=== PATIENT | male | born 1950 | race Caucasian/White ===

== ENCOUNTER → 2017-02-16 | Outpatient (CLI) | payer MEDICARE ==
[2017-02-16 10:47] LABS: ALT 53 U/L (21-72); AST 26 U/L (17-59); Alkaline Phosphatase 54 U/L (38-126); Anion Gap 9 mmol/L; Blood Urea Nitrogen 14 mg/dL (9-20); Calcium 9.5 mg/dL (8.4-10.2); Carbon Dioxide 29 mmol/L (22-30); Chloride 100 mmol/L (98-107); Cholesterol 215 mg/dL (<200); Glucose 217 mg/dL (74-99); HDL Cholesterol 41 mg/dL (40-60); Non-African American GFR(MDRD) >60 (>60 ml/min/1.73 sqM); Potassium 5.1 mmol/L (3.5-5.1); Sodium 138 mmol/L (137-145); Total Bilirubin 0.5 mg/dL (0.2-1.3); Total Protein 7.5 g/dL (6.3-8.2)
== END | disposition home or self-care (01) ==
LOC: LABWHC1 09:44
PROVIDERS: ATTEND Internal Medicine Clinical Cardiac Electrophysiology
DX: I25.10 Atherosclerotic heart disease of native coronary artery without angina pectoris (principal); I47.2 Ventricular tachycardia
CPT/HCPCS: 36415; 80053; 80061; 84443

== ENCOUNTER → 2017-03-24 | Outpatient (CLI) | payer MEDICARE ==
[2017-03-24 09:01] LABS: Blood Urea Nitrogen 17 mg/dL (9-20); Non-African American GFR(MDRD) >60 (>60 ml/min/1.73 sqM)
--- NOTE | 2017-03-24 12:06 | CT ---
EXAMINATION TYPE: CT angio neck DATE OF EXAM: 03/24/2017 COMPARISON: NONE HISTORY: 66-year-old male Carotid stenosis TECHNIQUE: Contiguous axial scanning of the neck performed with IV Contrast, patient injected with 65 mL of Omnipaque 350. Coronal/sagittal MIP reconstructions performed. 3-D reconstructions generated o n a dedicated independent workstation. CT DLP: 426 mGycm Automated exposure control for dose reduction was used. FINDINGS: Left anterior chest wall pacemaker generator. Emphysema in the visualized upper lungs. Mild atherosclerotic calcifications within the aortic arch with patent great vessel origins. The vertebral arteries are codominant and patent at their origin and throughout their course. There i s mild atherosclerotic calcification at the origin of the right vertebral artery and within the intra cranial V4 segments on both sides. On the right, the common carotid artery is patent. There is moderate plaque and calcification within the carotid bulb. At the proximal bulb, focal calcifications cause mild, 30% stenosis. There is sugge stion of some focal plaque ulceration in the upper carotid bulb which gives the appearance of 2 lumen s on some of the cross-sectional images. At this level the vessels narrowed to 1.9 mm which qualifies as a moderate, 60% stenosis. The proximal right ICA takes a hairpin turn directed right laterally. T he bifurcation is located approximately 1.6 cm below the angle of the mandible. On the left, there is mild atherosclerotic narrowing of the upper common carotid artery secondary to mural-based plaque. The mid left ICA is tortuous and there is moderate atelectatic calcification in the carotid bulb area with mild, less than 50% luminal narrowing. IMPRESSION: 1. FOCAL PLAQUE ULCERATION IN THE UPPER RIGHT CAROTID BULB CAUSING MODERATE, 60% PROXIMAL ICA STENOSI S. 2. MILD, LESS THAN 50% ATHEROSCLEROTIC NARROWING WITHIN THE LEFT CAROTID BULB.
== END | disposition home or self-care (01) ==
LOC: RADCTMAIN 08:27
PROVIDERS: ATTEND Internal Medicine Interventional Cardiology
DX: I65.23 Occlusion and stenosis of bilateral carotid arteries (principal)
CPT/HCPCS: 82565; 84520; 70498; 36415; Q9967

== ENCOUNTER → 2017-11-03 | Outpatient (CLI) | payer MEDICARE ==
[2017-11-03 11:31] LABS: ALT 53 U/L (21-72); AST 26 U/L (17-59); Albumin 4.5 g/dL (3.5-5.0); Alkaline Phosphatase 58 U/L (38-126); Anion Gap 13 mmol/L; Blood Urea Nitrogen 14 mg/dL (9-20); Calcium 9.7 mg/dL (8.4-10.2); Carbon Dioxide 27 mmol/L (22-30); Chloride 101 mmol/L (98-107); Cholesterol 202 mg/dL (<200); Glucose 231 mg/dL (74-99); HDL Cholesterol 40 mg/dL (40-60); LDL Cholesterol,Calculated 124 mg/dL (0-99); Potassium 5.7 mmol/L (3.5-5.1); Sodium 141 mmol/L (137-145); Total Bilirubin 0.3 mg/dL (0.2-1.3); Total Protein 7.6 g/dL (6.3-8.2); Triglycerides 190 mg/dL (<150)
== END | disposition home or self-care (01) ==
LOC: LABWHC1 10:22
PROVIDERS: ATTEND Internal Medicine Clinical Cardiac Electrophysiology
DX: I47.2 Ventricular tachycardia (principal); I50.9 Heart failure, unspecified; I25.10 Atherosclerotic heart disease of native coronary artery without angina pectoris; E78.5 Hyperlipidemia, unspecified
CPT/HCPCS: 36415; 80053; 80061; 84443

== ENCOUNTER 2017-11-30 10:21 | Day surgery (SDC) | payer MEDICARE ==
[~2017-11-30 10:21] MED LIST: ALPRAZolam 0.25 MG TAB PO PRN; SODIUM CHLORIDE 0.9% 1,000 ML in EMPTY BAG 1 BAG IV ONE
[2017-11-30 10:57] LABS: Basophils # (A) 0.1 k/uL (0-0.2); Basophils % (A) 1 %; Eosinophils # (A) 0.3 k/uL (0-0.7); Eosinophils % (A) 3 %; HCT 47.7 % (39.0-53.0); HGB 15.8 gm/dL (13.0-17.5); Lymphocytes # (A) 1.2 k/uL (1.0-4.8); Lymphocytes % (A) 11 %; MCH 29.4 pg (25.0-35.0); MCHC 33.1 g/dL (31.0-37.0); MCV 88.9 fL (80.0-100.0); Mean Platelet Volume 7.6; Monocytes # (A) 0.8 k/uL (0-1.0); Monocytes % (A) 7 %; Neutrophils # (A) 8.6 k/uL (1.3-7.7); Neutrophils % (A) 77 %; Platelet Count 292 k/uL (150-450); RBC 5.36 m/uL (4.30-5.90); WBC 11.2 k/uL (3.8-10.6)
[2017-11-30 11:14] LABS: Anion Gap 12 mmol/L; Blood Urea Nitrogen 14 mg/dL (9-20); Calcium 9.5 mg/dL (8.4-10.2); Carbon Dioxide 27 mmol/L (22-30); Chloride 101 mmol/L (98-107); Glucose 199 mg/dL (74-99); Potassium 4.9 mmol/L (3.5-5.1); Sodium 140 mmol/L (137-145)
[2017-11-30] MEDS ORDERED: MIDAZOLAM 2 MG/2 ML VIAL IV ONE (11:26)
[2017-11-30] MEDS ORDERED: LIDOCAINE 1% INJ 10MG/ML (20 ML MDV) SQ ONE (11:26)
[2017-11-30] MEDS: MIDAZOLAM 2 MG/2 ML VIAL IVP ONE ×2 (11:39→12:11)
[2017-11-30] MEDS: fentaNYL (PF) 50 MCG/ML 2 ML AMP IVP ONE ×3 (11:40→12:52)
[2017-11-30] MEDS ORDERED: IOPAMIDOL-370 100ML BTL INJ ONE ×3 (11:46→12:55)
[2017-11-30] MEDS ORDERED: SODIUM CHLORIDE 0.9% 1,000 ML IV ONE (12:52)
[2017-11-30] MEDS ORDERED: SODIUM CHLORIDE 0.9% 1,000 ML IV SCH (13:30)
[2017-11-30] MEDS ORDERED: ENALAPRILAT 1.25 MG/ML 1 ML VIAL IVP ONE (14:15)
--- NOTE | 2017-11-30 14:48 | AN ---
ANGIOGRAPHY REPORT DATE OF SERVICE: November 30, 2017 PERFORMING PHYSICIAN: Chente Bonilla MD. PROCEDURE PERFORMED: 1. Selective right common iliac artery angiogram. 2. Successful stenting of the right common iliac artery using 7.0 x 22 mm iCAST stent with good angiographic results. INDICATION: This is a pleasant 67-year-old gentleman who sees Dr. Diaz in the office as an outpatient who was experiencing right leg intermittent claudication who underwent a peripheral angiogram earlier and that revealed severe disease involving the right common iliac artery. The decision was made towards percutaneous peripheral intervention. APPROACH: Left common femoral artery. COMPLICATION: None. LEVEL OF SEDATION: Moderate with sedation length of 70 minutes. PROCEDURE DESCRIPTION: After peripheral angiogram was performed from the left groin using 5-[place] Citizen sheath, I did exchange my 11 cm 5-[place] Citizen sheath into 23 cm Brite tip 7-[place] Citizen sheath. Subsequently I did select the right SFA using a 5-[place] Citizen rim catheter with 035 glide advantage wire. After that, I did advance the 23 cm Brite Tip sheath all the way to the distal aortic bifurcation. I did after that balloon angioplasty of the of the right common iliac artery using 6 mm x 20 mm balloon before I deployed 7 x 22 mm iCAST stent where the stent was positioned under fluoroscopy guidance and deployed under 14 atmospheres for 20 seconds with the following angiogram showing good angiographic results with reduction of stenosis from 80% to 0%. Of course before I started the procedure, anticoagulation was initiated using heparin and the patient was given a total of 8000 units of heparin IV with ACT monitoring throughout the procedure. Before I did the iliac stenting, I did also gradient measurement across the right common iliac artery using a 5-[place] straight catheter which was advanced over a 035 glide advantage wire and that was positioned distal to the lesion and proximal to the lesion in the right common iliac artery. The gradient measurement came in to be 30 mmHg indicating severe stenosis. POSTPROCEDURE MANAGEMENT: 1. Dual anti-platelet therapy. 2. Risk factor modifications. 3. Follow up with the patient. MMODL / IJN: [id number] /
--- NOTE | 2017-11-30 14:48 | AN ---
ANGIOGRAPHY REPORT DATE OF SERVICE: November 30, 2017 PERFORMING PHYSICIAN: Chente Bonilla MD, grinder set up operator. PROCEDURE PERFORMED: 1. An abdominal aortogram and bilateral lower extremities runoff. 2. Gradient measurement across the left common iliac artery. INDICATION: This is a pleasant 67-year-old gentleman who sees Dr. Diaz in the office as an outpatient as well as sees a primary care physician at the [facility] in [place] was experiencing right leg intermittent claudication. He underwent a right carotid stenting a few months ago and accessing through the right groin. I did selective right common femoral artery at that point, and that showed critical disease involving the ostial of the right SFA. He was brought today to undergo an abdominal aortogram and bilateral lower extremities runoff. COMPLICATION: None. LEVEL OF SEDATION: Moderate with sedation length of 20 minutes. PROCEDURE DESCRIPTION: After obtaining an informed consent, the patient was brought to cardiac cath lab tech. The left common femoral artery was cannulated using micropuncture technique and a micropuncture wire passed easily then I placed a 5-[place] sheath in the left common femoral artery. I did after that an abdominal aortogram and bilateral lower extremities runoff using 5-[place] pigtail catheter which was initially placed at the level of the renal arteries then it was pulled into above the bifurcation of the aorta to right and left common iliac arteries. I did after that gradient measurement across the left common iliac artery. Please see a separate paragraph for that. SELECTIVE PERIPHERAL ANGIOGRAM: 1. The aorta appeared to be mildly aneurysmal. It is calcified as well. It bifurcates into right and left common iliac arteries. 2. Common Iliac Arteries: The right common iliac artery has mild disease only and the ostial of left common iliac artery appeared to have a lesion in the range of 70% to 80%. 3. Internal Iliac Arteries: The right and left internal iliac arteries are angiographically normal. 4. External Iliac Arteries: The right and left external iliac arteries are angiographically normal. 5. Common Femoral Arteries: The right and left common femoral arteries are angiographically normal. 6. Profunda: The right profunda has a tight lesion in the proximal portion, appeared to be in the range of 70% to 80%. The left profunda appeared to be angiographically normal. 7. The SFA: The right SFA by the ostium has a disease in the range of 60-70% and the left SFA appeared to be angiographically normal. 8. The popliteal: The right and left popliteal are angiographically normal. 9. Below the knee: The vessels below the knee were poorly visualized, but it seems to be that there are 3 vessel runoff below the knee bilaterally. CONCLUSION: 1. Severe disease involving the ostial of right common iliac artery. 2. Severe disease involving the right profunda. 3. Intermediate to severe disease involving the right SFA. POSTPROCEDURE MANAGEMENT: 1. NOTCH MACHINE OPERATOR of the right common iliac artery. 2. If the patient continues to be symptomatic in spite of that, I do feel that the patient will benefit from endarterectomy of the profunda as well as right SFA since the disease involving the proximal portion of both of them right from the bifurcation from the right common femoral artery. MMODL / IJN: [id number] /
--- NOTE | 2017-11-30 14:50 | IR ---
Fluoroscopy HISTORY: Pain in leg 16 minutes fluoroscopy time supplied to the referring clinician. 339 intraoperative C-arm images doc ument the procedure. See dictated report from cardiology.
[2017-11-30] MEDS ORDERED: fentaNYL (PF) 50 MCG/ML 2 ML AMP IVP SCH (15:40)
[2017-11-30] MEDS ORDERED: fentaNYL (PF) 50 MCG/ML 5 ML AMP IVP ONE (17:32)
[2017-11-30 19:00] VITALS: BMI 37.3
[2017-11-30] MEDS: MEXILETINE 150 MG CAP PO SCH ×2 (19:01→21:08)
[2017-11-30] MEDS: FERROUS SULFATE 325 MG TAB PO SCH ×2 (19:01→21:11)
[2017-11-30] MEDS: CARVEDILOL 12.5 MG TAB PO SCH (19:02)
[2017-11-30] MEDS ORDERED: ATORVASTATIN 40 MG TAB PO SCH (21:00)
[2017-11-30] MEDS ORDERED: INSULIN DETEMIR 100 UNIT/ML 10 ML VIAL SQ SCH (21:00)
[2017-11-30 21:20] LABS: Glucose,Whole Blood 216 mg/dL (75-99)
[2017-12-01 03:32] LABS: Glucose,Whole Blood 180 mg/dL (75-99)
[2017-12-01 05:39] LABS: Glucose,Whole Blood 142 mg/dL (75-99)
[2017-12-01] MEDS: CARVEDILOL 12.5 MG TAB PO SCH (06:18)
[2017-12-01 06:34] LABS: Basophils # (A) 0.1 k/uL (0-0.2); Basophils % (A) 1 %; Eosinophils # (A) 0.3 k/uL (0-0.7); Eosinophils % (A) 2 %; HCT 42.2 % (39.0-53.0); HGB 13.8 gm/dL (13.0-17.5); Lymphocytes # (A) 1.9 k/uL (1.0-4.8); Lymphocytes % (A) 18 %; MCH 29.1 pg (25.0-35.0); MCHC 32.6 g/dL (31.0-37.0); MCV 89.2 fL (80.0-100.0); Mean Platelet Volume 7.8; Monocytes % (A) 9 %; Neutrophils # (A) 7.3 k/uL (1.3-7.7); Neutrophils % (A) 69 %; Platelet Count 266 k/uL (150-450); RBC 4.73 m/uL (4.30-5.90); RDW 14.9 % (11.5-15.5); WBC 10.6 k/uL (3.8-10.6)
[2017-12-01 06:47] LABS: Anion Gap 9 mmol/L; Blood Urea Nitrogen 14 mg/dL (9-20); Calcium 8.5 mg/dL (8.4-10.2); Carbon Dioxide 27 mmol/L (22-30); Chloride 104 mmol/L (98-107); Glucose 134 mg/dL (74-99); Potassium 4.5 mmol/L (3.5-5.1); Sodium 140 mmol/L (137-145)
[2017-12-01] MEDS ORDERED: INSULIN ASPART 100 UNIT/ML 1 ML 10 ML VIAL SQ SCH (07:30)
[2017-12-01] MEDS: FERROUS SULFATE 325 MG TAB PO SCH (08:32)
[2017-12-01] MEDS: MEXILETINE 150 MG CAP PO SCH (08:32)
[2017-12-01] MEDS ORDERED: ASPIRIN 81 MG PO SCH (09:00)
[2017-12-01] MEDS ORDERED: CLOPIDOGREL 75 MG TAB PO SCH ×2 (09:00)
[2017-12-01] MEDS ORDERED: AMIODARONE 100 MG TAB PO SCH (09:00)
[2017-12-01] MEDS ORDERED: VELTASSA 8.4 GM PO SCH (09:00)
[2017-12-01] MEDS ORDERED: LISINOPRIL 20 MG TAB PO SCH (09:00)
[2017-12-01] MEDS ORDERED: LOSARTAN 50 MG TAB PO SCH (09:00)
[2017-12-01 09:19] VITALS: BP 103/50; PULSE 66; RESP 18; TEMP 97.6
--- NOTE | 2017-12-01 12:07 | DS ---
DISCHARGE SUMMARY ADMISSION DATE: 11/30/2017 DISCHARGE DATE: 12/01/2017 BRIEF HISTORY: This is a pleasant 67-year-old gentleman who sees Dr. Diaz in the office as an outpatient who was experiencing right lower extremities intermittent claudication and underwent a peripheral angiogram yesterday and that revealed critical disease involving the right iliac artery where he underwent stenting of the right iliac artery. The procedure was performed from the left groin which is soft and nontender and without any bruises. The patient is going to be discharged home on dual anti-platelet therapy and I will follow up with the patient in the office as an outpatient. MMODL / IJN: [id number] /
== END 2017-12-01 11:20 | disposition home or self-care (01) ==
LOC: CATHCVL 10:21 → 6SEL 12:55 → CATHCVL 12-01 11:20
PROVIDERS: ATTEND Internal Medicine Interventional Cardiology
DX: I70.211 Atherosclerosis of native arteries of extremities with intermittent claudication, right leg (principal); I70.0 Atherosclerosis of aorta; E13.51 Other specified diabetes mellitus with diabetic peripheral angiopathy without gangrene; Z79.4 Long term (current) use of insulin; E78.5 Hyperlipidemia, unspecified; I25.5 Ischemic cardiomyopathy; I25.10 Atherosclerotic heart disease of native coronary artery without angina pectoris; Z95.820 Peripheral vascular angioplasty status with implants and grafts; I47.2 Ventricular tachycardia; Z95.810 Presence of automatic (implantable) cardiac defibrillator; J42 Unspecified chronic bronchitis; J43.8 Other emphysema; Z86.79 Personal history of other diseases of the circulatory system; I11.0 Hypertensive heart disease with heart failure; I50.22 Chronic systolic (congestive) heart failure; Z87.891 Personal history of nicotine dependence; Z82.49 Family history of ischemic heart disease and other diseases of the circulatory system; Z79.02 Long term (current) use of antithrombotics/antiplatelets; Z79.82 Long term (current) use of aspirin; Z79.899 Other long term (current) drug therapy
CPT/HCPCS: 37221; 75625; 75716; 80048 ×2; 85025 ×2; C1894 ×3; C1874; C1769 ×4; C1725; J2250; J2001; J3010 ×2; J1644; Q9967

== ENCOUNTER 2019-01-29 06:04 | Day surgery (SDC) | payer MEDICARE ==
[~2019-01-29 06:04] MED LIST changes: -ALPRAZolam 0.25 MG TAB PO PRN; +DEXAMETHASONE SOD PHOSPHATE 10 MG/ML 1 ML VIAL IV ONE; +LIDOCAINE 1% 20 ML VIAL (10MG/ML) FOR IV START INTRADERMA PRN; +MIDAZOLAM 2 MG/2 ML VIAL IV PRN; +SODIUM CHLORIDE 0.9% 1,000 ML IV SCH; -SODIUM CHLORIDE 0.9% 1,000 ML in EMPTY BAG 1 BAG IV ONE; +fentaNYL (PF) 50 MCG/ML 2 ML AMP IV PRN
[2019-01-29] MEDS ORDERED: ceFAZolin 1,000 MG in SODIUM CHLORIDE 0.9% IRRIGATIO 250 ML IRRIGATION ONE (07:00)
[2019-01-29] MEDS ORDERED: INSULIN ASPART (NovoLOG) 100 UNIT/ML VIAL SQ ONE (07:03)
[2019-01-29] MEDS ORDERED: PROPOFOL 10 MG/ML 20 ML VIAL IV ONE (07:07)
[2019-01-29] MEDS ORDERED: LIDOCAINE 1% INJ 10MG/ML (20 ML MDV) ONE ×3 (07:07→07:17)
[2019-01-29] MEDS ORDERED: MIDAZOLAM 2 MG/2 ML VIAL ONE (07:07)
[2019-01-29] MEDS ORDERED: fentaNYL (PF) 50 MCG/ML 2 ML AMP ONE (07:07)
[2019-01-29] MEDS ORDERED: amLODIPine 5 MG TAB ONE (07:17)
[2019-01-29] MEDS ORDERED: SODIUM CHLORIDE 0.9% 1,000 ML IV ONE (07:21)
[2019-01-29 07:27] LABS: Glucose,Whole Blood 238 mg/dL (75-99)
[2019-01-29] MEDS ORDERED: ACETAMINOPHEN TAB 325 MG TAB PO PRN (07:32)
[2019-01-29] MEDS ORDERED: HYDROcodone/APAP 5-325MG 1 EACH TAB PO PRN (07:32)
[2019-01-29] MEDS ORDERED: LIDOCAINE 1% INJ 10MG/ML (20 ML MDV) SQ ONE (07:55)
[2019-01-29] MEDS: LACTATED RINGERS 1,000 ML IV SCH (09:31)
[2019-01-29] MEDS: SODIUM CHLORIDE 0.9% 1,000 ML IV SCH (09:31)
[2019-01-29] MEDS: MEXILETINE 150 MG CAP PO SCH ×3 (09:31→22:46)
[2019-01-29] MEDS: CLOPIDOGREL 75 MG TAB PO SCH (09:31)
[2019-01-29] MEDS: LOSARTAN 50 MG TAB PO SCH (09:31)
[2019-01-29] MEDS: AMIODARONE 100 MG TAB PO SCH (09:32)
[2019-01-29] MEDS ORDERED: ACETAMINOPHEN IV (For NPO) 1,000 MG in EMPTY BAG 1 BAG IVPB ONE (10:00)
[2019-01-29 11:37] LABS: Glucose,Whole Blood 203 mg/dL (75-99)
[2019-01-29] MEDS: INSULIN ASPART (NovoLOG) 100 UNIT/ML VIAL SQ SCH ×3 (13:17→21:13)
[2019-01-29 13:55] VITALS: BMI 39.1
[2019-01-29 16:47] LABS: Glucose,Whole Blood 189 mg/dL (75-99)
[2019-01-29] MEDS: CARVEDILOL 12.5 MG TAB PO SCH (17:08)
[2019-01-29 20:36] LABS: Glucose,Whole Blood 194 mg/dL (75-99)
[2019-01-29] MEDS ORDERED: INSULIN DETEMIR (LEVEMIR) 100 UNIT/ML SYR SQ SCH (21:00)
[2019-01-29] MEDS ORDERED: ATORVASTATIN 80 MG TAB PO SCH (21:00)
--- NOTE | 2019-01-29 21:43 | PCN ---
PROCEDURE NOTE Pro Cason is a 68-year-old male patient with a dual-chamber ICD for management of an ischemic cardiomyopathy with ventricular tachycardia and ventricular fibrillation in the past with spontaneous sustained VT and bradycardia. His device is at [facility] and he was brought in for an ICD generator change and testing. He is on amiodarone and mexiletine. DESCRIPTION OF PROCEDURE: Patient was brought to the EP lab in a fasting state. Written informed consent was obtained prior to the procedure. The left shoulder area was prepped and draped as per protocol. 1% lidocaine was used for local anesthesia. A 4 cm incision made over the previous surgical site and carried down to the level of the generator. A partial capsulectomy was performed. The leads were freed from the surrounding capsule and the pocket was irrigated. The old generator was removed. The new generator was implanted. The leads were tested. Following that, defibrillation level testing was performed. The right atrial lead was Medtronic model #5076 52 cm in length and serial number [id number]. P waves 1.5 mV. Pacing impedance 578 ohms, pacing threshold 0.6 V at 0.5 milliseconds. The RV ICD lead was a single coil lead 65 cm in length, Medtronic model #6935 and serial number [id number]. R-waves 10.4 mV. Pacing impedance 543 ohms, pacing threshold 0.6 V at 0.5 milliseconds. The old generator explanted was Medtronic model number [id number], product name Virtuoso 2DR serial number [id number]. The new generator was a dual-chamber generator was a Medtronic model number [id number], serial number [id number]. The leads and generator were then placed in subfascial pocket. The wound was closed in 3 layers and dressed per protocol. Defibrillation level testing was then performed. Shock and T-wave protocol was used to induce ventricular fibrillation. This was adequately and appropriately detected at least sensitivity with 3 drop outs and successfully internally defibrillated with a 20 joule shock. Charge time 4.2 seconds. Shocking impedance of 78 ohms. No post shock noise. The device was then programmed to 3 zones of therapy. VF zone at 214 beats per minute. Fast VT zone of 171 beats per minute and slow VT zone of 143 beats per minute and a monitor zone of 133 beats per minute. Appropriate antitachycardia pacing cardioversion and defibrillation were programmed. Dual-chamber pacing AAIR to DDDR 50- 120 ppm. Patient tolerated the procedure well without any acute complications. RESULTS: 1. Successful dual-chamber ICD generator change for device at [facility] for secondary prevention of sudden cardiac in this gentleman with ischemic cardiomyopathy, class 2 CHF, chronic LV systolic dysfunction with severe LV dysfunction spontaneous sustained VT. 2. DFT at or below 20 joules. MMODL / IJN: [id number] /
[2019-01-29 23:13] VITALS: PULSE 68
[2019-01-30] MEDS: SODIUM CHLORIDE 0.9% 1,000 ML IV SCH (01:47)
[2019-01-30] MEDS ORDERED: INSULIN DETEMIR (LEVEMIR) 100 UNIT/ML SYR SQ SCH (04:32)
[2019-01-30 06:49] LABS: Glucose,Whole Blood 136 mg/dL (75-99)
[2019-01-30 07:30] VITALS: BP 123/83; RESP 17; TEMP 97.8
[2019-01-30] MEDS: LOSARTAN 50 MG TAB PO SCH (08:12)
[2019-01-30] MEDS: CARVEDILOL 12.5 MG TAB PO SCH (08:12)
[2019-01-30] MEDS: CLOPIDOGREL 75 MG TAB PO SCH (08:12)
[2019-01-30] MEDS: MEXILETINE 150 MG CAP PO SCH (08:13)
[2019-01-30] MEDS: AMIODARONE 100 MG TAB PO SCH (08:13)
[2019-01-30] MEDS: INSULIN ASPART (NovoLOG) 100 UNIT/ML VIAL SQ SCH (08:15)
[2019-01-30] MEDS: LACTATED RINGERS 1,000 ML IV SCH (08:15)
[2019-01-30] MEDS ORDERED: amLODIPine 2.5 MG TAB PO SCH (09:00)
[2019-01-30] MEDS ORDERED: ASPIRIN 81 MG PO SCH (09:00)
--- NOTE | 2019-01-30 14:30 | P.DS ---
Providers Attending physician: Zach Diaz [facility]: Patient is a 68-year-old male with past medical history of ischemic cardiomyopathy and spontaneous sustained VT status post dual-chamber ICD who presented for ICD generator change because his device was at [facility]. Yesterday he underwent successful ICD generator change and subsequent defibrillator level testing. DFT was found to be at or below 20 J. Device was reprogramed to AAIR- DDDR. Patient has done well postprocedure, no acute events overnight. Patient seen and examined sitting up at the side of his bed. Complains of mild pain at the incision site. Denies fevers, chills, cough, chest pain, shortness of breath, orthopnea, PND. He has been able to get up and walk around without any dizziness or lightheadedness. Temperature 97.8F, pulse 68, respirations 17, blood pressure 123/83, oxygen saturation 93% on room air Telemetry showed atrial pacing, no arrhythmias Patient seen and examined sitting up at the side bed, no acute distress Lungs clear to auscultation bilaterally, no wheezing rhonchi or crackles Heart is regular, normal S1-S2, no murmurs appreciated No elevated JVD No lower extremity edema Abdomen soft Generator dressing clean dry and intact Impression History of spontaneous sustained VT status post dual-chamber ICD status post generator change Ischemic cardiomyopathy Class II CHF Hypertension, blood pressure was initially elevated but has improved, in the 120s systolic this morning Plan He may be discharged after his antibiotics are completed Continue current cardiac medication regimen Educated patient low-sodium diet and home blood pressure monitoring Follow-up in the device clinic in 5 days follow up with Dr. Diaz/[place] Lentz/Susu Carlson in 3-4 months Plan - Discharge Summary Discharge Rx Participant: No New Discharge Prescriptions: Continue Ferrous Sulfate [Iron] 325 mg PO WEEKLY Aspirin [Adult Low Dose Aspirin EC] 81 mg PO DAILY Mexiletine HCl 150 mg PO TID Carvedilol [Coreg] 25 mg PO BID Amiodarone [Cordarone] 100 mg PO DAILY Insulin Aspart [NovoLOG Flexpen] 12 - 16 unit SQ AC-TID PRN PRN Reason: Blood Sugar - High Insulin Glargine [Lantus] 68 unit SQ HS Clopidogrel [Plavix] 75 mg PO DAILY #90 tab Losartan [Cozaar] 50 mg PO DAILY Atorvastatin [Lipitor] 80 mg PO HS amLODIPine [Norvasc] 2.5 mg PO DAILY Discharge Medication List Amiodarone [Cordarone] 100 mg PO DAILY 05/04/17 [History] Aspirin [Adult Low Dose Aspirin EC] 81 mg PO DAILY 05/04/17 [History] Carvedilol [Coreg] 25 mg PO BID 05/04/17 [History] Ferrous Sulfate [Iron] 325 mg PO WEEKLY 05/04/17 [History] Insulin Aspart [NovoLOG Flexpen] 12 - 16 unit SQ AC-TID PRN 05/04/17 [History] Insulin Glargine [Lantus] 68 unit SQ HS 05/04/17 [History] Mexiletine HCl 150 mg PO TID 05/04/17 [History] Clopidogrel [Plavix] 75 mg PO DAILY #90 tab 05/10/17 [Rx] Losartan [Cozaar] 50 mg PO DAILY 11/25/17 [History] Atorvastatin [Lipitor] 80 mg PO HS 01/23/19 [History] amLODIPine [Norvasc] 2.5 mg PO DAILY 01/23/19 [History] Follow up Appointment(s)/Referral(s): Zach Diaz MD [STAFF PHYSICIAN] - 02/02/19 2:00 pm (Device clinic follow-up within 1 week Follow-up with Dr. Diaz/[place] Lentz/Susu Carlson in about 4 months TuesdayJun 01 at 2:45. Mar 27 0800am for carotid ultrasound.) Patient Instructions/Handouts: Pacemaker Generator Change (DC) Activity/Diet/Wound Care/Special Instructions: PATIENT EDUCATION MATERIAL Instructions following a heart rhythm device generator implant. 1. Keep dressing DRY for ONE week. You may cover the area with Saran or Cling Wrap, prior to a shower. 2. The dressing will be removed after one week in the Device Clinic @ [facility]. Absorbable sutures were used to close the wound. 3. Avoid raising the [left] arm above the shoulder level. [1 week restriction] 4. Avoid arm movements, like backscratching, rubbing the head, or pulling on a cord. (1 weeks restriction) 5. Gentle range of motion movements of the shoulder, closest to the incision should be performed to avoid a frozen shoulder. (Pendulum exercises of the shoulder) 6. The opposite arm may be used freely. 7. Avoid driving for 7 days. 8. Avoid activities such as golfing, swimming, weed whacking, lifting more than 10 pounds weight, bowling, gymnastics and weight training/lifting. (2 weeks restriction) 9. Activities such as wood chopping with an axe, pull-ups in the gymnasium, power lifting, arc-welding, being close to home induction cooktops will always be a problem. In case of any problems, please call [facility], Romel Reyes, @ [phone], Attention: Device Clinic
[2019-02-04] MEDS ORDERED: FERROUS SULFATE 325 MG TAB PO SCH (09:00)
== END 2019-01-30 10:30 ==
LOC: CATHEP 06:04 → 1SOBS 09:05 → CATHEP 01-30 10:30
PROVIDERS: ATTEND Internal Medicine Clinical Cardiac Electrophysiology
DX: I25.5 Ischemic cardiomyopathy (principal); Z45.02 Encounter for adjustment and management of automatic implantable cardiac defibrillator; I11.0 Hypertensive heart disease with heart failure; I50.22 Chronic systolic (congestive) heart failure; E78.5 Hyperlipidemia, unspecified; E11.51 Type 2 diabetes mellitus with diabetic peripheral angiopathy without gangrene; Z82.49 Family history of ischemic heart disease and other diseases of the circulatory system; Z95.820 Peripheral vascular angioplasty status with implants and grafts; Z72.0 Tobacco use; Z79.02 Long term (current) use of antithrombotics/antiplatelets; Z79.4 Long term (current) use of insulin; Z79.82 Long term (current) use of aspirin; Z79.899 Other long term (current) drug therapy
CPT/HCPCS: 93641; 33263; C1721; J2250; J0690 ×3; J2001; J3010; J2704

== ENCOUNTER → 2020-11-04 | Outpatient (CLI) | payer MEDICARE | END | disposition home or self-care (01) | LOC: CPPFTMAIN 10:03 | PROVIDERS: ATTEND Internal Medicine Clinical Cardiac Electrophysiology | DX: J44.9 Chronic obstructive pulmonary disease, unspecified (principal); Z79.899 Other long term (current) drug therapy | CPT/HCPCS: 94060; 94726; 94729 ==